=== PATIENT | female | born 1990 | race African-American/Black ===

== ENCOUNTER 2021-05-14 06:03 | Emergency (ER) | payer MEDICAID ==
[~2021-05-14] VITALS: Ht 165.1 cm; Wt 64.0 kg
[~2021-05-14 06:03] MED LIST: DOXY150T5 PO; HYDR-523 PO
[2021-05-14] MEDS ORDERED: SODIUM CHLORIDE 0.9% 1,000 ML IV ONE (08:15)
[2021-05-14] MEDS ORDERED: ACETAMINOPHEN 325MG TABLET PO ONE (08:15)
[2021-05-14] MEDS ORDERED: METOCLOPRAMIDE HCL 10MG/2ML VIAL IV ONE (08:15)
[2021-05-14 08:21] LABS: BASOPHILS % 0.4 % (0.0-2.0); EOSINOPHILS % 0.3 % (0.0-5.0); HEMATOCRIT. 34.3 % (36.0-48.0); HEMOGLOBIN. 11.5 g/dL (12.0-16.0); LYMPHOCYTES % 16.1 % (20.0-50.0); MEAN CORPUSCULAR HEMOGLOBIN 32.9 pg (28.0-32.0); MEAN CORPUSCULAR VOLUME 98.3 fL (81.0-99.0); MEAN PLATELET VOLUME 9.1 fl (7.4-10.4); MONOCYTES % 6.6 % (2.0-8.0); NEUTROPHILS % 76.6 % (40.0-76.0); PLATELET 192 x1000/uL (130-400); RED BLOOD CELL COUNT 3.49 mill/uL (4.2-5.4); RED CELL DISTRIBUTION WIDTH 15.4 % (11.6-14.6)
[2021-05-14 08:30] LABS: CHLORIDE 112 mEq/L (98-107)
[2021-05-14 08:36] LABS: ETHANOL BLOOD < 10 mg/dL
[2021-05-14 08:37] LABS: HCG SCREEN POSITIVE
[2021-05-14 08:43] LABS: CLARITY URINE CLEAR (CLEAR); COLOR URINE YELLOW (YELLOW); KETONES URINE 2+ (NEGATIVE); LEUKOCYTE ESTERASE URINE NEGATIVE (NEGATIVE); NITRITE URINE NEGATIVE (NEGATIVE); OCCULT BLOOD URINE NEGATIVE (NEGATIVE); PH URINE 8.5 (4.5-8.0); PROTEIN URINE 1+ (NEGATIVE); SPECIFIC GRAVITY URINE 1.019 (1.005-1.030); UROBILINOGEN URINE 0.2 E.U./dL (0.2-1.0)
[2021-05-14 08:45] LABS: PROTHROMBIN TIME 10.3 sec (9.6-11.0)
[2021-05-14 08:56] LABS: *AMPHETAMINES SCREEN URINE NEGATIVE (NEGATIVE); *BARBITURATES SCREEN URINE NEGATIVE (NEGATIVE); *BENZODIAZEPINES SCREEN URINE NEGATIVE (NEGATIVE); *COCAINE SCREEN URINE NEGATIVE (NEGATIVE)
[2021-05-14 08:57] LABS: METHADONE URINE SCREEN NEGATIVE (NEGATIVE); OPIATES URINE SCREEN NEGATIVE (NEGATIVE); PHENCYCLIDINE URINE SCREEN NEGATIVE (NEGATIVE)
[2021-05-14 08:58] LABS: CANNABINOID URINE SCREEN PRESUMTIVE POSITIVE (NEGATIVE)
[2021-05-14] MEDS ORDERED: METO-293 MT (11:37)
[2021-05-14] MEDS ORDERED: CEPH500C2 MT (11:37)
[2021-05-14 12:51] VITALS: BP 111/60
== END 2021-05-14 12:54 | disposition home or self-care (01) ==
LOC: ER 06:08
DX: O21.9 Vomiting of pregnancy, unspecified (principal); O26.891 Other specified pregnancy related conditions, first trimester; R10.30 Lower abdominal pain, unspecified; R82.71 Bacteriuria; D64.9 Anemia, unspecified; E86.0 Dehydration; Z79.899 Other long term (current) drug therapy; Z3A.01 Less than 8 weeks gestation of pregnancy
CPT/HCPCS: 36415; 76801; 76817; 80053; 80305; 80320; 81003; 81025; 83690; 84702; 84703; 85025; 85610; 93005; 96361; 96374; 99285; J2765; J7030; J7040; Z7610; G0480

== ENCOUNTER 2021-09-06 21:03 | Emergency (ER) | payer MEDICAID ==
[~2021-09-06] VITALS: Ht 165.1 cm; Wt 130.0 kg
[~2021-09-06 21:03] MED LIST changes: +CEPH500C2 MT; +METO-293 MT
[2021-09-06 21:15] VITALS: BP 105/73
[2021-09-06] MEDS ORDERED: ONDANSETRON HCL 4MG/2ML INJ IV STA (22:41)
[2021-09-06] MEDS ORDERED: SODIUM CHLORIDE 0.9% 1,000 ML IV ONE ×2 (22:45→23:45)
[2021-09-06] MEDS ORDERED: PANTOPRAZOLE SODIUM 40 MG/VIAL IV ONE (23:00)
[2021-09-06] MEDS ORDERED: PROCHLORPERAZINE 10MG/2ML VIAL IV ONE (23:15)
[2021-09-06 23:31] LABS: CHLORIDE 103 mEq/L (98-107)
[2021-09-06 23:32] LABS: HEMATOCRIT. 39.9 % (36.0-48.0); HEMOGLOBIN. 13.4 g/dL (12.0-16.0); MEAN CORPUSCULAR VOLUME 95.3 fL (81.0-99.0); MEAN PLATELET VOLUME 8.8 fl (7.4-10.4); PLATELET 223 x1000/uL (130-400); RED BLOOD CELL COUNT 4.19 mill/uL (4.2-5.4); RED CELL DISTRIBUTION WIDTH 14.8 % (11.6-14.6)
[2021-09-06 23:34] LABS: HCG SCREEN POSITIVE
[2021-09-06] MEDS ORDERED: DOXY1TAB3 PO (23:42)
[2021-09-06] MEDS ORDERED: DOCO200C5 MT (23:43)
[2021-09-07] MEDS ORDERED: PYRIDOXINE 100 MG/ML 1ML IM NR
[2021-09-07 00:04] LABS: PLATELET ESTIMATE NORMAL
[2021-09-07 01:47] LABS: CLARITY URINE CLEAR (CLEAR); COLOR URINE DARK YELLOW (YELLOW); KETONES URINE 3+ (NEGATIVE); LEUKOCYTE ESTERASE URINE TRACE (NEGATIVE); NITRITE URINE NEGATIVE (NEGATIVE); OCCULT BLOOD URINE 2+ (NEGATIVE); PROTEIN URINE TRACE (NEGATIVE); SPECIFIC GRAVITY URINE 1.024 (1.005-1.030)
[2021-09-07] MEDS ORDERED: NITR-87 MT (01:56)
== END 2021-09-07 02:16 | disposition home or self-care (01) ==
LOC: ER 21:03
DX: O98.511 Other viral diseases complicating pregnancy, first trimester (principal); U07.1 COVID-19; O26.891 Other specified pregnancy related conditions, first trimester; O23.41 Unspecified infection of urinary tract in pregnancy, first trimester; R11.2 Nausea with vomiting, unspecified; N39.0 Urinary tract infection, site not specified; R10.9 Unspecified abdominal pain; Z3A.01 Less than 8 weeks gestation of pregnancy
CPT/HCPCS: 36415; 71045; 76801; 80053; 81003; 83690; 84702; 84703; 85025; 96361; 96372; 96374; 96375; 99285; C9113; C9803; J0780; J2405; J3415; J7030; U0003; U0005

== ENCOUNTER 2021-10-29 14:25 | Emergency (ER) | payer MEDICAID ==
[~2021-10-29] VITALS: Ht 165.1 cm; Wt 78.0 kg
[~2021-10-29 14:25] MED LIST changes: +DOCO200C5 MT; +DOXY1TAB3 PO; +NITR-87 MT
[2021-10-29] MEDS ORDERED: SODIUM CHLORIDE 0.9% 1,000 ML IV ONE (15:15)
[2021-10-29] MEDS ORDERED: ONDANSETRON HCL 4MG/2ML INJ IV ONE (15:15)
[2021-10-29 15:29] LABS: BASOPHILS % 0.8 % (0.0-2.0); EOSINOPHILS % 0.6 % (0.0-5.0); HEMATOCRIT. 31.1 % (36.0-48.0); HEMOGLOBIN. 10.5 g/dL (12.0-16.0); LYMPHOCYTES % 15.4 % (20.0-50.0); MEAN CORPUSCULAR HEMOGLOBIN 33.6 pg (28.0-32.0); MEAN CORPUSCULAR VOLUME 99.1 fL (81.0-99.0); MEAN PLATELET VOLUME 8.4 fl (7.4-10.4); NEUTROPHILS % 75.2 % (40.0-76.0); PLATELET 245 x1000/uL (130-400); RED BLOOD CELL COUNT 3.14 mill/uL (4.2-5.4); RED CELL DISTRIBUTION WIDTH 14.2 % (11.6-14.6)
[2021-10-29 16:33] LABS: CHLORIDE 106 mEq/L (98-107)
[2021-10-29 16:57] LABS: B-HCG QUANTITATIVE 106796 mIU/mL (<3)
[2021-10-29] MEDS ORDERED: METOCLOPRAMIDE HCL 10MG/2ML VIAL IV ONE (17:00)
[2021-10-29] MEDS ORDERED: PANTOPRAZOLE SODIUM 40 MG/VIAL IV ONE (17:00)
[2021-10-29] MEDS ORDERED: FAMOTIDINE 20MG/2ML VIAL IV ONE (17:15)
[2021-10-29] MEDS ORDERED: ACETAMINOPHEN 325MG TABLET PO ONE (17:45)
[2021-10-29] MEDS ORDERED: OMEP20TA2 MT (17:54)
[2021-10-29] MEDS ORDERED: METO10TA3 MT (17:54)
[2021-10-29 18:56] VITALS: BP 135/80
== END 2021-10-29 18:57 | disposition home or self-care (01) ==
LOC: ER 14:34
DX: O21.0 Mild hyperemesis gravidarum (principal); Z3A.16 16 weeks gestation of pregnancy; Z79.899 Other long term (current) drug therapy
CPT/HCPCS: 36415; 76815; 80053; 84702; 85025; 96361; 96374; 96375; 99284; C9113; J2405; J2765; J7030